=== PATIENT | male | born 1955 | race African-American/Black ===

== ENCOUNTER 2019-02-07 12:30 | Emergency (ER) | payer OTHER ==
[~2019-02-07] VITALS: Ht 167.6 cm; Wt 92.0 kg
[~2019-02-07 12:30] MED LIST: ASPI-1158 PO; HYDR25TA PO; LISI-604 PO
[2019-02-07 14:45] LABS: HEMATOCRIT. 37.6 % (42.0-52.0); HEMOGLOBIN. 12.6 g/dL (14.0-18.0); MEAN CORPUSCULAR HEMOGLOBIN 29.2 pg (28.0-32.0); MEAN CORPUSCULAR VOLUME 87.2 fL (80.0-94.0); MEAN PLATELET VOLUME 8.3 fl (7.4-10.4); PLATELET 278 x1000/uL (130-400); RED BLOOD CELL COUNT 4.31 mill/uL (4.7-6.1); RED CELL DISTRIBUTION WIDTH 13.6 % (11.6-14.6)
[2019-02-07] MEDS ORDERED: KETOROLAC 15MG/ML VIAL IV ONE (14:45)
[2019-02-07] MEDS ORDERED: SODIUM CHLORIDE 0.9% 1,000 ML IV ONE (14:45)
[2019-02-07 14:50] LABS: CHLORIDE 100 mEq/L (98-107)
[2019-02-07 15:30] LABS: PLATELET ESTIMATE NORMAL
[2019-02-07 15:38] VITALS: BP 128/86
== END 2019-02-07 18:38 | disposition home or self-care (01) ==
LOC: ER 12:30
DX: R51 Headache (principal); R53.1 Weakness; E11.9 Type 2 diabetes mellitus without complications; Z79.82 Long term (current) use of aspirin; I12.9 Hypertensive chronic kidney disease with stage 1 through stage 4 chronic kidney disease, or unspecified chronic kidney disease; N18.9 Chronic kidney disease, unspecified
CPT/HCPCS: 36415; 70450; 80053; 83880; 84484; 85025; 93005; 96374; 99284; J1885; J7030; Z7610

== ENCOUNTER 2019-02-14 09:37 | Inpatient (IN) | payer OTHER ==
[~2019-02-14] VITALS: Ht 167.6 cm; Wt 91.6 kg
[2019-02-14] MEDS ORDERED: SODIUM CHLORIDE 0.9% 1,000 ML IV ONE (09:56)
[2019-02-14 10:42] LABS: CLARITY URINE CLEAR (CLEAR); COLOR URINE YELLOW (YELLOW); KETONES URINE NEGATIVE (NEGATIVE); LEUKOCYTE ESTERASE URINE NEGATIVE (NEGATIVE); NITRITE URINE NEGATIVE (NEGATIVE); OCCULT BLOOD URINE 2+ (NEGATIVE); PROTEIN URINE 4+ (NEGATIVE); SPECIFIC GRAVITY URINE 1.021 (1.005-1.030); UROBILINOGEN URINE 0.2 E.U./dL (0.2-1.0)
[2019-02-14] MEDS ORDERED: CEFTRIAXONE 1 G PREMIX 50 ML IV ONE (11:00)
[2019-02-14] MEDS ORDERED: AZITHROMYCIN 500 MG in DEXT 5% WATER 250 ML IV SCH (11:00)
[2019-02-14 11:01] LABS: BASOPHILS % 0.4 % (0.0-2.0); HEMATOCRIT. 39.2 % (42.0-52.0); HEMOGLOBIN. 13.7 g/dL (14.0-18.0); LYMPHOCYTES % 9.8 % (20.0-50.0); MEAN CORPUSCULAR HEMOGLOBIN 29.6 pg (28.0-32.0); MEAN CORPUSCULAR VOLUME 84.8 fL (80.0-94.0); MEAN PLATELET VOLUME 7.7 fl (7.4-10.4); MONOCYTES % 2.4 % (2.0-8.0); NEUTROPHILS % 87.4 % (40.0-76.0); PLATELET 366 x1000/uL (130-400); RED BLOOD CELL COUNT 4.62 mill/uL (4.7-6.1); RED CELL DISTRIBUTION WIDTH 13.5 % (11.6-14.6)
[2019-02-14 11:07] LABS: *AMPHETAMINES SCREEN URINE NEGATIVE (NEGATIVE); *BENZODIAZEPINES SCREEN URINE NEGATIVE (NEGATIVE); METHADONE URINE SCREEN NEGATIVE (NEGATIVE)
[2019-02-14 11:08] LABS: CANNABINOID URINE SCREEN NEGATIVE (NEGATIVE); OPIATES URINE SCREEN NEGATIVE (NEGATIVE); PHENCYCLIDINE URINE SCREEN NEGATIVE (NEGATIVE)
[2019-02-14 11:08] LABS: CHLORIDE 98 mEq/L (98-107)
[2019-02-14 11:09] LABS: *BARBITURATES SCREEN URINE NEGATIVE (NEGATIVE); *COCAINE SCREEN URINE NEGATIVE (NEGATIVE)
[2019-02-14 11:12] LABS: ETHANOL BLOOD < 10 mg/dL
[2019-02-14] MEDS ORDERED: LABETALOL 5MG/ML SYR 20 MG/4 ML SYRINGE IV ONE (11:30)
[2019-02-14] MEDS ORDERED: ONDANSETRON HCL 4MG/2ML INJ IV ONE (12:45)
[2019-02-14] MEDS ORDERED: ONDANSETRON HCL 4MG/2ML INJ IV SCH (13:30)
[2019-02-14] MEDS ORDERED: IPRATROPIUM/ALBUTEROL 0.5-3(2.5)MG/3ML NEB INH PRN (14:00)
[2019-02-14] MEDS ORDERED: HYDROCODONE/ACETAMINOPHEN 5/325MG TABLET PO PRN (14:00)
[2019-02-14] MEDS ORDERED: DIPHENHYDRAMINE 50MG/ML VIAL IV PRN (14:00)
[2019-02-14] MEDS ORDERED: ACETAMINOPHEN 325MG TABLET PO PRN (14:00)
[2019-02-14] MEDS ORDERED: DOCUSATE SODIUM 100MG CAPSULE PO PRN (14:00)
[2019-02-14] MEDS ORDERED: GUAIFENESIN 200MG/10ML SUGAR FREE UDC PO PRN (14:00)
[2019-02-14 16:58] LABS: PHOSPHORUS 3.7 mg/dL (2.5-4.9)
[2019-02-14 17:01] LABS: CREATINE KINASE MB FRACTION 10.9 ng/mL (0.5-3.6)
[2019-02-14] MEDS: ONDANSETRON HCL 4MG/2ML INJ IV PRN (17:19)
[2019-02-14 17:23] LABS: HEPATITIS B SURFACE ANTIGEN NEGATIVE
[2019-02-14 17:53] LABS: HEPATITIS A AB IGM NEGATIVE (NEGATIVE)
[2019-02-14] MEDS: HYDRALAZINE 20MG/ML VIAL IV PRN (20:33)
[2019-02-14 20:50] VITALS: BP 162/68
[2019-02-14] MEDS ORDERED: DEXTROSE 50% WATER 50ML SYRINGE IV PRN (21:45)
[2019-02-14 23:50] LABS: CREATINE KINASE MB FRACTION 12.6 ng/mL (0.5-3.6)
[2019-02-15] VITALS: BP 160/80
[2019-02-15] MEDS: ONDANSETRON HCL 4MG/2ML INJ IV PRN ×3 (00:49→21:27)
[2019-02-15] MEDS ORDERED: INSU100V3 SUBCUT (03:35)
[2019-02-15 04:00] VITALS: BP 160/88
[2019-02-15] MEDS: BLOOD SUGAR DIAGNOSTIC STRIP TEST SCH ×4 (06:11→21:11)
[2019-02-15 06:22] LABS: BASOPHILS % 0.2 % (0.0-2.0); EOSINOPHILS % 0.1 % (0.0-5.0); HEMATOCRIT. 36.8 % (42.0-52.0); HEMOGLOBIN. 12.9 g/dL (14.0-18.0); LYMPHOCYTES % 10.9 % (20.0-50.0); MEAN CORPUSCULAR HEMOGLOBIN 29.7 pg (28.0-32.0); MEAN CORPUSCULAR VOLUME 84.4 fL (80.0-94.0); MEAN PLATELET VOLUME 7.7 fl (7.4-10.4); MONOCYTES % 5.8 % (2.0-8.0); PLATELET 372 x1000/uL (130-400); RED BLOOD CELL COUNT 4.36 mill/uL (4.7-6.1); RED CELL DISTRIBUTION WIDTH 13.2 % (11.6-14.6)
[2019-02-15] MEDS: INSULIN LISPRO 100 UNITS/ML SUBCUT SCH ×4 (06:26→22:09)
[2019-02-15 06:41] LABS: CHLORIDE 99 mEq/L (98-107)
[2019-02-15 06:51] LABS: LDL CHOLESTEROL 160 mg/dL (5-100)
[2019-02-15 06:52] LABS: HDL CHOLESTEROL 56 mg/dL (40-59)
[2019-02-15 08:00] VITALS: BP 165/79
[2019-02-15] MEDS ORDERED: NA PHOS,M-B/NA PHOS,DI-BA ENEMA 118ML PR NR (09:30)
[2019-02-15] MEDS ORDERED: BISACODYL 5MG TABLET PO NR (09:30)
[2019-02-15] MEDS: HYDRALAZINE 20MG/ML VIAL IV PRN (10:10)
[2019-02-15] MEDS: CEFTRIAXONE 1 G PREMIX 50 ML IV SCH (11:26)
[2019-02-15] MEDS ORDERED: BISACODYL 10MG SUPP PR PRN (11:30)
[2019-02-15] MEDS: AMLODIPINE 10MG TABLET PO SCH (11:44)
[2019-02-15 12:00] VITALS: BP 127/63
[2019-02-15] MEDS: AZITHROMYCIN 500MG in DEXTROSE 5% WATER 250ML IV SCH (14:09)
[2019-02-15 16:00] VITALS: BP 110/56
[2019-02-15] MEDS: DOCUSATE SODIUM 250MG CAPSULE PO SCH (17:54)
[2019-02-15] MEDS: METOCLOPRAMIDE HCL 10MG/2ML VIAL IV SCH ×2 (17:54→23:56)
[2019-02-15] MEDS ORDERED: VANCOMYCIN 1500MG in DEXTROSE 5% WATER 250ML IV NR (18:30)
[2019-02-15 20:00] VITALS: BP 144/65
[2019-02-15] MEDS: INSULIN GLARGINE UD 100 UNITS/ML SYR SUBCUT SCH (22:09)
[2019-02-16] VITALS: BP 144/73
[2019-02-16 04:00] VITALS: BP 138/75
[2019-02-16] MEDS: METOCLOPRAMIDE HCL 10MG/2ML VIAL IV SCH ×4 (05:36→23:31)
[2019-02-16] MEDS: BLOOD SUGAR DIAGNOSTIC STRIP TEST SCH ×4 (06:20→20:47)
[2019-02-16] MEDS: INSULIN LISPRO 100 UNITS/ML SUBCUT SCH ×4 (06:20→20:47)
[2019-02-16 06:54] LABS: BASOPHILS % 0.3 % (0.0-2.0); EOSINOPHILS % 0.5 % (0.0-5.0); HEMATOCRIT. 35.9 % (42.0-52.0); HEMOGLOBIN. 12.7 g/dL (14.0-18.0); LYMPHOCYTES % 19.7 % (20.0-50.0); MEAN CORPUSCULAR HEMOGLOBIN 29.7 pg (28.0-32.0); MEAN CORPUSCULAR VOLUME 84.1 fL (80.0-94.0); MEAN PLATELET VOLUME 7.6 fl (7.4-10.4); MONOCYTES % 6.4 % (2.0-8.0); NEUTROPHILS % 73.1 % (40.0-76.0); PLATELET 411 x1000/uL (130-400); RED BLOOD CELL COUNT 4.27 mill/uL (4.7-6.1)
[2019-02-16 07:19] LABS: PHOSPHORUS 4.6 mg/dL (2.5-4.9)
[2019-02-16 08:00] VITALS: BP 134/69
[2019-02-16] MEDS: DOCUSATE SODIUM 250MG CAPSULE PO SCH ×2 (09:02→18:12)
[2019-02-16] MEDS: AMLODIPINE 10MG TABLET PO SCH (09:02)
[2019-02-16] MEDS: ASPIRIN 81MG TABLET PO SCH (09:02)
[2019-02-16] MEDS: INSULIN GLARGINE UD 100 UNITS/ML SYR SUBCUT SCH ×2 (10:03→22:10)
[2019-02-16] MEDS: CEFTRIAXONE 1 G PREMIX 50 ML IV SCH (10:04)
[2019-02-16 11:10] LABS: CREATINE KINASE 600 IU/L (39-308)
[2019-02-16 12:00] VITALS: BP 124/63
[2019-02-16] MEDS: AZITHROMYCIN 500MG in DEXTROSE 5% WATER 250ML IV SCH (13:00)
[2019-02-16] MEDS: METOPROLOL TARTRATE 25MG TABLET PO SCH ×2 (13:56→22:09)
[2019-02-16 16:00] VITALS: BP_SYST 118; BP_SYST 123; BP_SYST 137; BP_DIAS 70; BP_DIAS 74; BP_DIAS 76
[2019-02-16] MEDS ORDERED: VANCOMYCIN 1 G PREMIX 200 ML IV SCH (18:00)
[2019-02-16] MEDS ORDERED: VANCOMYCIN 1250MG in DEXTROSE 5% WATER 250ML IV SCH (18:00)
[2019-02-16 20:00] VITALS: BP 133/61
[2019-02-16] MEDS: ATORVASTATIN CALCIUM 20MG TABLET PO SCH (20:46)
[2019-02-16] MEDS: FAMOTIDINE 20MG TABLET PO SCH (20:46)
[2019-02-17] VITALS: BP 142/64
[2019-02-17 04:00] VITALS: BP 117/58
[2019-02-17] MEDS: METOCLOPRAMIDE HCL 10MG/2ML VIAL IV SCH ×3 (05:33→16:44)
[2019-02-17 06:49] LABS: BASOPHILS % 0.8 % (0.0-2.0); HEMATOCRIT. 37.7 % (42.0-52.0); HEMOGLOBIN. 13.1 g/dL (14.0-18.0); LYMPHOCYTES % 23.4 % (20.0-50.0); MEAN CORPUSCULAR HEMOGLOBIN 29.3 pg (28.0-32.0); MEAN CORPUSCULAR VOLUME 84.3 fL (80.0-94.0); MEAN PLATELET VOLUME 7.4 fl (7.4-10.4); MONOCYTES % 10.1 % (2.0-8.0); NEUTROPHILS % 63.7 % (40.0-76.0); PLATELET 416 x1000/uL (130-400); RED BLOOD CELL COUNT 4.48 mill/uL (4.7-6.1); RED CELL DISTRIBUTION WIDTH 13.1 % (11.6-14.6)
[2019-02-17] MEDS: BLOOD SUGAR DIAGNOSTIC STRIP TEST SCH ×4 (07:10→21:27)
[2019-02-17 07:16] LABS: PHOSPHORUS 4.2 mg/dL (2.5-4.9)
[2019-02-17 08:00] VITALS: BP 130/80
[2019-02-17] MEDS: METOPROLOL TARTRATE 25MG TABLET PO SCH ×2 (08:15→21:27)
[2019-02-17] MEDS: ASPIRIN 81MG TABLET PO SCH (08:15)
[2019-02-17] MEDS: DOCUSATE SODIUM 250MG CAPSULE PO SCH ×2 (08:15→16:44)
[2019-02-17] MEDS: AMLODIPINE 10MG TABLET PO SCH (08:15)
[2019-02-17] MEDS: CEFTRIAXONE 1 G PREMIX 50 ML IV SCH (11:33)
[2019-02-17] MEDS: INSULIN GLARGINE UD 100 UNITS/ML SYR SUBCUT SCH ×2 (11:41→21:33)
[2019-02-17 11:59] VITALS: BP 114/41
[2019-02-17] MEDS: AZITHROMYCIN 500MG in DEXTROSE 5% WATER 250ML IV SCH (12:00)
[2019-02-17] MEDS: INSULIN LISPRO 100 UNITS/ML SUBCUT SCH ×3 (12:40→21:32)
[2019-02-17 13:06] LABS: HIV SCREEN 4G Non Reactive (Non Reactive)
[2019-02-17 16:00] VITALS: BP 130/70
[2019-02-17] MEDS ORDERED: FAMO20TA8 PO (16:36)
[2019-02-17] MEDS ORDERED: DOXY100T2 MT (16:36)
[2019-02-17] MEDS ORDERED: AMLO10TA80 PO (16:36)
[2019-02-17] MEDS ORDERED: INSU100V3 SUBCUT (16:36)
[2019-02-17] MEDS ORDERED: ATOR20TA PO (16:36)
[2019-02-17] MEDS ORDERED: LANTUSUD SUBCUT (16:36)
[2019-02-17] MEDS ORDERED: AMOX-424 MT (16:36)
[2019-02-17] MEDS ORDERED: METO-385 MT (16:36)
[2019-02-17 20:00] VITALS: BP 155/68
[2019-02-17] MEDS: ATORVASTATIN CALCIUM 20MG TABLET PO SCH (21:26)
[2019-02-17] MEDS: FAMOTIDINE 20MG TABLET PO SCH (21:26)
[2019-02-18] VITALS: BP 146/64
[2019-02-18 04:00] VITALS: BP 141/64
[2019-02-18] MEDS: METOCLOPRAMIDE HCL 10MG/2ML VIAL IV SCH ×4 (04:56→17:10)
[2019-02-18 06:25] LABS: HEMATOCRIT. 34.9 % (42.0-52.0); HEMOGLOBIN. 12.1 g/dL (14.0-18.0); MEAN CORPUSCULAR HEMOGLOBIN 29.5 pg (28.0-32.0); MEAN CORPUSCULAR VOLUME 84.8 fL (80.0-94.0); MEAN PLATELET VOLUME 7.4 fl (7.4-10.4); PLATELET 390 x1000/uL (130-400); RED BLOOD CELL COUNT 4.12 mill/uL (4.7-6.1)
[2019-02-18] MEDS: BLOOD SUGAR DIAGNOSTIC STRIP TEST SCH ×4 (06:52→21:09)
[2019-02-18 08:00] VITALS: BP 154/77
[2019-02-18] MEDS: DOCUSATE SODIUM 250MG CAPSULE PO SCH ×2 (09:05→17:10)
[2019-02-18] MEDS: AMLODIPINE 10MG TABLET PO SCH (09:06)
[2019-02-18] MEDS: ASPIRIN 81MG TABLET PO SCH (09:06)
[2019-02-18] MEDS: METOPROLOL TARTRATE 25MG TABLET PO SCH ×2 (09:06→20:56)
[2019-02-18] MEDS: INSULIN LISPRO 100 UNITS/ML SUBCUT SCH ×4 (09:07→21:06)
[2019-02-18] MEDS: CEFTRIAXONE 1 G PREMIX 50 ML IV SCH (09:55)
[2019-02-18] MEDS: INSULIN GLARGINE UD 100 UNITS/ML SYR SUBCUT SCH ×2 (10:02→21:07)
[2019-02-18] MEDS ORDERED: VANCOMYCIN 1 G PREMIX 200 ML IV SCH (10:30)
[2019-02-18 12:00] VITALS: BP 116/73
[2019-02-18 13:11] LABS: A/G RATIO 0.8 (0.7-1.7); ALBUMIN 2.7 g/dL (2.9-4.4); ALPHA-1-GLOBULIN 0.2 g/dL (0.0-0.4); BETA GLOBULIN 1.1 g/dL (0.7-1.3); GAMMA GLOBULINS 0.8 g/dL (0.4-1.8); GLOBULIN TOTAL 3.2 g/dL (2.2-3.9); M-SPIKE Not Observed g/dL (Not Observed); TOTAL PROTEIN SERUM 5.9 g/dL (6.0-8.5)
[2019-02-18] MEDS: AZITHROMYCIN 500MG in DEXTROSE 5% WATER 250ML IV SCH (13:18)
[2019-02-18 13:48] LABS: PLATELET ESTIMATE NORMAL
[2019-02-18 16:00] VITALS: BP 140/70
[2019-02-18 20:00] VITALS: BP 156/79
[2019-02-18] MEDS: ATORVASTATIN CALCIUM 20MG TABLET PO SCH (20:56)
[2019-02-18] MEDS: FAMOTIDINE 20MG TABLET PO SCH (20:56)
[2019-02-19 00:01] VITALS: BP 142/76
[2019-02-19] MEDS: METOCLOPRAMIDE HCL 10MG/2ML VIAL IV SCH ×5 (00:50→23:59)
[2019-02-19 04:00] VITALS: BP 136/82
[2019-02-19] MEDS: BLOOD SUGAR DIAGNOSTIC STRIP TEST SCH ×4 (06:01→21:32)
[2019-02-19] MEDS: INSULIN LISPRO 100 UNITS/ML SUBCUT SCH ×4 (06:07→21:33)
[2019-02-19 06:50] LABS: EOSINOPHILS % 4.3 % (0.0-5.0); HEMATOCRIT. 33.4 % (42.0-52.0); HEMOGLOBIN. 11.7 g/dL (14.0-18.0); LYMPHOCYTES % 16.3 % (20.0-50.0); MEAN CORPUSCULAR HEMOGLOBIN 29.6 pg (28.0-32.0); MEAN CORPUSCULAR VOLUME 84.4 fL (80.0-94.0); MEAN PLATELET VOLUME 7.3 fl (7.4-10.4); MONOCYTES % 9.6 % (2.0-8.0); NEUTROPHILS % 68.8 % (40.0-76.0); PLATELET 372 x1000/uL (130-400); RED BLOOD CELL COUNT 3.95 mill/uL (4.7-6.1); RED CELL DISTRIBUTION WIDTH 12.9 % (11.6-14.6)
[2019-02-19 07:36] LABS: PHOSPHORUS 4.2 mg/dL (2.5-4.9)
[2019-02-19 08:00] VITALS: BP 157/69
[2019-02-19] MEDS: AMLODIPINE 10MG TABLET PO SCH (09:00)
[2019-02-19] MEDS: DOCUSATE SODIUM 250MG CAPSULE PO SCH ×2 (09:00→17:27)
[2019-02-19] MEDS: METOPROLOL TARTRATE 25MG TABLET PO SCH ×2 (09:00→21:32)
[2019-02-19] MEDS: ASPIRIN 81MG TABLET PO SCH (09:00)
[2019-02-19] MEDS ORDERED: BACITRACIN 50,000 UNITS/VIAL ONE (09:51)
[2019-02-19] MEDS ORDERED: LIDOCAINE HCL/EPINEPHRINE 1%-EPI 1:100,000 20 ML VIAL ONE (09:51)
[2019-02-19] MEDS ORDERED: NORMAL SALINE 0.9% 10 ML SYR ONE (09:51)
[2019-02-19] MEDS: INSULIN GLARGINE UD 100 UNITS/ML SYR SUBCUT SCH ×2 (09:58→21:34)
[2019-02-19] MEDS ORDERED: MIDAZOLAM HCL 2 MG/2 ML VIAL ONE (10:03)
[2019-02-19] MEDS ORDERED: FENTANYL CITRATE/PF 50MCG/ML 2ML VIAL ONE (10:03)
[2019-02-19] MEDS ORDERED: LIDOCAINE HCL/PF 1% 10 MG/ML 5ML VIAL ONE (10:04)
[2019-02-19] MEDS ORDERED: BUPIVACAINE HCL/PF 0.5% (5MG/ML) 10ML ONE (10:04)
[2019-02-19] MEDS ORDERED: ONDANSETRON HCL 4MG/2ML INJ ONE (10:15)
[2019-02-19] MEDS ORDERED: ONDANSETRON HCL 4MG/2ML INJ IV PRN (11:15)
[2019-02-19] MEDS ORDERED: HYDROMORPHONE HCL/PF 2MG/ML CPJ IV PRN (11:15)
[2019-02-19 12:00] VITALS: BP 149/71
[2019-02-19] MEDS: CEFTRIAXONE 1 G PREMIX 50 ML IV SCH (14:47)
[2019-02-19 16:00] VITALS: BP 167/78
[2019-02-19 20:00] VITALS: BP 155/80
[2019-02-19] MEDS: FAMOTIDINE 20MG TABLET PO SCH (21:32)
[2019-02-19] MEDS: ATORVASTATIN CALCIUM 20MG TABLET PO SCH (21:32)
[2019-02-20] VITALS: BP 138/75
[2019-02-20 04:00] VITALS: BP 162/72
[2019-02-20] MEDS: METOCLOPRAMIDE HCL 10MG/2ML VIAL IV SCH ×2 (05:32→12:07)
[2019-02-20] MEDS: INSULIN LISPRO 100 UNITS/ML SUBCUT SCH ×2 (06:30→13:10)
[2019-02-20] MEDS: BLOOD SUGAR DIAGNOSTIC STRIP TEST SCH ×2 (06:30→12:10)
[2019-02-20 07:13] LABS: BASOPHILS % 0.5 % (0.0-2.0); EOSINOPHILS % 3.9 % (0.0-5.0); HEMATOCRIT. 34.4 % (42.0-52.0); HEMOGLOBIN. 11.8 g/dL (14.0-18.0); LYMPHOCYTES % 13.8 % (20.0-50.0); MEAN CORPUSCULAR HEMOGLOBIN 29.1 pg (28.0-32.0); MEAN CORPUSCULAR VOLUME 84.5 fL (80.0-94.0); MEAN PLATELET VOLUME 7.5 fl (7.4-10.4); MONOCYTES % 9.8 % (2.0-8.0); PLATELET 368 x1000/uL (130-400); RED BLOOD CELL COUNT 4.07 mill/uL (4.7-6.1); RED CELL DISTRIBUTION WIDTH 12.9 % (11.6-14.6)
[2019-02-20 07:23] LABS: PHOSPHORUS 4.1 mg/dL (2.5-4.9)
[2019-02-20] MEDS: ASPIRIN 81MG TABLET PO SCH (09:41)
[2019-02-20] MEDS: AMLODIPINE 10MG TABLET PO SCH (09:44)
[2019-02-20] MEDS: METOPROLOL TARTRATE 25MG TABLET PO SCH (09:44)
[2019-02-20] MEDS: DOCUSATE SODIUM 250MG CAPSULE PO SCH (09:45)
[2019-02-20] MEDS: INSULIN GLARGINE UD 100 UNITS/ML SYR SUBCUT SCH (11:19)
[2019-02-20] MEDS: CEFTRIAXONE 1 G PREMIX 50 ML IV SCH (12:04)
[2019-02-20] MEDS ORDERED: HYDRALAZINE HCL 25MG TABLET PO SCH (12:45)
[2019-02-20 13:39] VITALS: BP 151/89
[2019-02-20] MEDS ORDERED: VANCOMYCIN 1250MG in DEXTROSE 5% WATER 250ML IV NR (17:00)
== END 2019-02-20 15:00 | disposition home health service (06) | DRG 710 ==
LOC: ER 09:37 → 8WST 11:45 → ENRESERV 19:48
PROVIDERS: ADMIT Internal Medicine; ATTEND Internal Medicine
PROC: 0HDRXZZ Extraction of Toe Nail, External Approach (ICD-10-PCS; 2019-02-15)
PROC: 0QBQ0ZX Excision of Right Toe Phalanx, Open Approach, Diagnostic (ICD-10-PCS; 2019-02-15)
PROC: 0JBQ0ZZ Excision of Right Foot Subcutaneous Tissue and Fascia, Open Approach (ICD-10-PCS; 2019-02-15)
PROC: 0Y6R0Z2 Detachment at Right 2nd Toe, Mid, Open Approach (ICD-10-PCS; principal; 2019-02-19)
DX: A41.9 Sepsis, unspecified organism (principal); G93.40 Encephalopathy, unspecified; E44.0 Moderate protein-calorie malnutrition; J18.1 Lobar pneumonia, unspecified organism; E11.22 Type 2 diabetes mellitus with diabetic chronic kidney disease; E11.42 Type 2 diabetes mellitus with diabetic polyneuropathy; N17.9 Acute kidney failure, unspecified; N18.4 Chronic kidney disease, stage 4 (severe); M86.9 Osteomyelitis, unspecified; E11.621 Type 2 diabetes mellitus with foot ulcer; E11.319 Type 2 diabetes mellitus with unspecified diabetic retinopathy without macular edema; E11.65 Type 2 diabetes mellitus with hyperglycemia; E11.69 Type 2 diabetes mellitus with other specified complication; L97.519 Non-pressure chronic ulcer of other part of right foot with unspecified severity; I12.9 Hypertensive chronic kidney disease with stage 1 through stage 4 chronic kidney disease, or unspecified chronic kidney disease; I16.0 Hypertensive urgency; E87.1 Hypo-osmolality and hyponatremia; D64.9 Anemia, unspecified; K56.41 Fecal impaction; E78.5 Hyperlipidemia, unspecified; K80.20 Calculus of gallbladder without cholecystitis without obstruction; M62.82 Rhabdomyolysis; L03.031 Cellulitis of right toe; N20.0 Calculus of kidney; Z68.32 Body mass index [BMI] 32.0-32.9, adult; Z79.4 Long term (current) use of insulin; Z82.49 Family history of ischemic heart disease and other diseases of the circulatory system; Z83.3 Family history of diabetes mellitus; Z89.429 Acquired absence of other toe(s), unspecified side; Z79.899 Other long term (current) drug therapy; Z79.82 Long term (current) use of aspirin
CPT/HCPCS: 36415; 70551; 71045; 73630; 73721; 74176; 76770; 80048; 80061; 80202; 80305; 80320; 82550; 82553; 82962; 83036; 83605; 83735; 83880; 84100; 84145; 84155; 84165; 84443; 84484; 85651; 86140; 86705; 86709; 86803; 87070; 87075; 87340; 87389; 87804; 88305; 88311; 93005; 93306; 93970; 96365; 96375; 97162; 97165; 99285; J0360; J0456; J0696; J1815; J2250; J2405; J2765; J3010; J3370; J3490; J7030; J7050; J7060; G0480

== ENCOUNTER 2020-03-10 15:27 | Emergency (ER) | payer OTHER ==
[~2020-03-10] VITALS: Ht 167.6 cm; Wt 92.0 kg
[~2020-03-10 15:27] MED LIST changes: +AMLO10TA80 PO; +AMOX-424 MT; +ATOR20TA PO; +DOXY100T2 MT; +FAMO20TA8 PO; -HYDR25TA PO; +INSU100V3 SUBCUT; +LANTUSUD SUBCUT; -LISI-604 PO; +METO-385 MT
[2020-03-10] MEDS ORDERED: SODIUM CHLORIDE 0.9% 1,000 ML IV ONE (16:22)
[2020-03-10] MEDS ORDERED: MORPHINE SULFATE 4 MG/ML CPJ (NOT FOR IM USE) IV STA (16:22)
[2020-03-10] MEDS ORDERED: ONDANSETRON HCL 4MG/2ML INJ IV STA (16:22)
[2020-03-10 17:02] LABS: BASOPHILS % 0.6 % (0.0-2.0); EOSINOPHILS % 1.3 % (0.0-5.0); HEMATOCRIT. 40.1 % (42.0-52.0); HEMOGLOBIN. 13.8 g/dL (14.0-18.0); LYMPHOCYTES % 13.4 % (20.0-50.0); MEAN CORPUSCULAR HEMOGLOBIN 29.4 pg (28.0-32.0); MEAN CORPUSCULAR VOLUME 85.6 fL (80.0-94.0); MEAN PLATELET VOLUME 7.7 fl (7.4-10.4); MONOCYTES % 5.4 % (2.0-8.0); NEUTROPHILS % 79.3 % (40.0-76.0); PLATELET 326 x1000/uL (130-400); RED BLOOD CELL COUNT 4.68 mill/uL (4.7-6.1); RED CELL DISTRIBUTION WIDTH 13.8 % (11.6-14.6)
[2020-03-10 17:07] LABS: CHLORIDE 107 mEq/L (98-107)
[2020-03-10] MEDS ORDERED: SODIUM CHLORIDE 0.9% 500 ML IV ONE (18:15)
[2020-03-10 18:54] LABS: CLARITY URINE CLEAR (CLEAR); COLOR URINE YELLOW (YELLOW); KETONES URINE NEGATIVE (NEGATIVE); LEUKOCYTE ESTERASE URINE NEGATIVE (NEGATIVE); NITRITE URINE NEGATIVE (NEGATIVE); OCCULT BLOOD URINE 2+ (NEGATIVE); PH URINE 5.5 (4.5-8.0); PROTEIN URINE 4+ (NEGATIVE); SPECIFIC GRAVITY URINE 1.021 (1.005-1.030); UROBILINOGEN URINE 0.2 E.U./dL (0.2-1.0)
[2020-03-10] MEDS ORDERED: CLONIDINE 0.2MG TABLET PO ONE (19:15)
[2020-03-10] MEDS ORDERED: LORAZEPAM 0.5MG TABLET PO ONE (20:00)
[2020-03-10] MEDS ORDERED: METOCLOPRAMIDE HCL 10MG/2ML VIAL IV ONE (20:00)
[2020-03-10] MEDS ORDERED: ONDANSETRON HCL 4MG/2ML INJ IV ONE ×2 (20:00→23:00)
[2020-03-10] MEDS ORDERED: HYDRALAZINE 20MG/ML VIAL IV ONE ×2 (20:00→23:00)
[2020-03-11 06:20] VITALS: BP 201/93
[2020-03-11] MEDS ORDERED: AMLODIPINE 5MG TABLET PO ONE (06:30)
[2020-03-11] MEDS ORDERED: ONDANSETRON HCL 4MG TABLET PO ONE (06:45)
== END 2020-03-11 06:54 | disposition home or self-care (01) ==
LOC: ER 15:27
DX: E86.0 Dehydration (principal); I12.9 Hypertensive chronic kidney disease with stage 1 through stage 4 chronic kidney disease, or unspecified chronic kidney disease; N18.9 Chronic kidney disease, unspecified; E11.9 Type 2 diabetes mellitus without complications; H54.7 Unspecified visual loss; Z89.421 Acquired absence of other right toe(s); Z79.4 Long term (current) use of insulin; Z79.82 Long term (current) use of aspirin; Z79.899 Other long term (current) drug therapy
CPT/HCPCS: 36415; 71045; 80053; 81003; 82962; 83690; 83880; 84484; 85025; 93005; 96361; 96374; 96375; 96376; 99285; J0360; J2270; J2405; J7030; Q0162

== ENCOUNTER 2020-10-28 08:12 | Inpatient (IN) | payer MEDICARE, OTHER ==
[~2020-10-28] VITALS: Ht 167.6 cm; Wt 86.2 kg
[~2020-10-28 08:12] MED LIST changes: -AMOX-424 MT; -DOXY100T2 MT; -INSU100V3 SUBCUT; -LANTUSUD SUBCUT; -METO-385 MT
[2020-10-28] MEDS ORDERED: SODIUM CHLORIDE 0.9% 1,000 ML IV ONE (08:30)
[2020-10-28 09:44] LABS: HEMATOCRIT. 29.3 % (42.0-52.0); MEAN CORPUSCULAR HEMOGLOBIN 29.4 pg (28.0-32.0); MEAN CORPUSCULAR VOLUME 85.8 fL (80.0-94.0); MEAN PLATELET VOLUME 7.5 fl (7.4-10.4); PLATELET 241 x1000/uL (130-400); RED BLOOD CELL COUNT 3.41 mill/uL (4.7-6.1); RED CELL DISTRIBUTION WIDTH 13.4 % (11.6-14.6)
[2020-10-28 09:48] LABS: CHLORIDE 108 mEq/L (98-107)
[2020-10-28] MEDS ORDERED: AMLODIPINE 5MG TABLET PO ONE (10:30)
[2020-10-28] MEDS ORDERED: ONDANSETRON HCL 4MG/2ML INJ IV ONE (10:30)
[2020-10-28 10:45] LABS: PLATELET ESTIMATE NORMAL
[2020-10-28 13:26] LABS: CLARITY URINE CLEAR (CLEAR); COLOR URINE YELLOW (YELLOW); KETONES URINE TRACE (NEGATIVE); LEUKOCYTE ESTERASE URINE NEGATIVE (NEGATIVE); NITRITE URINE NEGATIVE (NEGATIVE); OCCULT BLOOD URINE 2+ (NEGATIVE); PROTEIN URINE 4+ (NEGATIVE); UROBILINOGEN URINE 0.2 E.U./dL (0.2-1.0)
[2020-10-28] MEDS ORDERED: DIPHENHYDRAMINE 50MG/ML VIAL IV PRN (13:45)
[2020-10-28] MEDS ORDERED: SODIUM POLYSTYRENE SULFONATE 15 G/60 ML BOT PO NR (16:00)
[2020-10-28] MEDS: CLONIDINE 0.1MG TABLET PO PRN (16:41)
[2020-10-28] MEDS: ONDANSETRON HCL 4MG/2ML INJ IV PRN (16:41)
[2020-10-28] MEDS ORDERED: DEXTROSE 50% WATER 50ML SYRINGE IV PRN (21:30)
[2020-10-29] VITALS (8 sets, daily range): BP systolic 135–197; BP diastolic 55–101
[2020-10-29] MEDS: BLOOD SUGAR DIAGNOSTIC STRIP TEST SCH ×4 (06:29→20:07)
[2020-10-29 07:39] LABS: BASOPHILS % 0.4 % (0.0-2.0); HEMATOCRIT. 30.4 % (42.0-52.0); HEMOGLOBIN. 10.4 g/dL (14.0-18.0); MEAN CORPUSCULAR HEMOGLOBIN 29.5 pg (28.0-32.0); MEAN CORPUSCULAR VOLUME 85.8 fL (80.0-94.0); MEAN PLATELET VOLUME 7.7 fl (7.4-10.4); MONOCYTES % 5.9 % (2.0-8.0); NEUTROPHILS % 78.7 % (40.0-76.0); PLATELET 294 x1000/uL (130-400); RED BLOOD CELL COUNT 3.54 mill/uL (4.7-6.1); RED CELL DISTRIBUTION WIDTH 13.4 % (11.6-14.6)
[2020-10-29] MEDS: INSULIN LISPRO 100 UNITS/ML SUBCUT SCH ×4 (07:50→20:07)
[2020-10-29] MEDS: ONDANSETRON HCL 4MG/2ML INJ IV PRN ×2 (07:52→18:08)
[2020-10-29 08:11] LABS: CHLORIDE 111 mEq/L (98-107)
[2020-10-29 08:19] LABS: HDL CHOLESTEROL 41 mg/dL (40-59)
[2020-10-29 08:20] LABS: LDL CHOLESTEROL 125 mg/dL (5-100)
[2020-10-29] MEDS ORDERED: PNEUMOCOCCAL 23-VAL P-SAC VAC 0.5 ML IM ONE (12:00)
[2020-10-29] MEDS: HYDRALAZINE 20MG/ML VIAL IV PRN ×2 (12:55→21:45)
[2020-10-29] MEDS: CLONIDINE 0.1MG TABLET PO PRN (18:08)
[2020-10-30] VITALS: BP 137/75
[2020-10-30 04:00] VITALS: BP 128/77
[2020-10-30] MEDS: BLOOD SUGAR DIAGNOSTIC STRIP TEST SCH ×2 (06:27→12:20)
[2020-10-30] MEDS: INSULIN LISPRO 100 UNITS/ML SUBCUT SCH ×2 (07:30→13:10)
[2020-10-30 07:48] LABS: BASOPHILS % 0.3 % (0.0-2.0); EOSINOPHILS % 0.6 % (0.0-5.0); HEMOGLOBIN. 10.5 g/dL (14.0-18.0); LYMPHOCYTES % 10.7 % (20.0-50.0); MEAN CORPUSCULAR HEMOGLOBIN 28.9 pg (28.0-32.0); MEAN CORPUSCULAR VOLUME 85.6 fL (80.0-94.0); MEAN PLATELET VOLUME 7.8 fl (7.4-10.4); MONOCYTES % 5.7 % (2.0-8.0); NEUTROPHILS % 82.7 % (40.0-76.0); PLATELET 298 x1000/uL (130-400); RED BLOOD CELL COUNT 3.62 mill/uL (4.7-6.1); RED CELL DISTRIBUTION WIDTH 13.7 % (11.6-14.6)
[2020-10-30 08:00] VITALS: BP 136/77
[2020-10-30 12:00] VITALS: BP 155/72
[2020-10-30 15:10] VITALS: BP 155/72
== END 2020-10-30 15:53 | disposition home or self-care (01) | DRG 682 ==
LOC: ER 08:12 → EDBEDREQSVC 10:23 → EDBEDREQ 10:23 → EDBEDREQTM 10:23 → 6WST 11:35 → EDBEDREQTM 11:42 → EDBEDREQ 11:42 → ENRESERV 22:19 → 7WST 10-29 13:27 → 6WST 10-29 23:30
PROVIDERS: ADMIT Internal Medicine; ATTEND Internal Medicine
DX: N17.9 Acute kidney failure, unspecified (principal); G93.41 Metabolic encephalopathy; J98.11 Atelectasis; D64.9 Anemia, unspecified; E87.5 Hyperkalemia; F17.200 Nicotine dependence, unspecified, uncomplicated; K52.9 Noninfective gastroenteritis and colitis, unspecified; N18.9 Chronic kidney disease, unspecified; I12.9 Hypertensive chronic kidney disease with stage 1 through stage 4 chronic kidney disease, or unspecified chronic kidney disease; E11.22 Type 2 diabetes mellitus with diabetic chronic kidney disease; Z20.828 Contact with and (suspected) exposure to other viral communicable diseases; Z53.29 Procedure and treatment not carried out because of patient's decision for other reasons; Z79.82 Long term (current) use of aspirin
CPT/HCPCS: 36415; 71045; 80048; 80053; 80061; 81003; 82962; 83036; 83605; 84145; 84443; 84484; 85025; 90732; 93005; 93970; 99291; J0360; J1815; J2405; J7030; U0003